=== PATIENT | female | born 1950 | race Caucasian/White ===

== ENCOUNTER 2023-09-19 10:40 | Emergency (ER) | payer MEDICARE, BC, OTHER ==
[~2023-09-19] VITALS: Ht 157.5 cm; Wt 70.0 kg
[2023-09-19 11:27] VITALS: BP 185/98; PULSE 84; RESP 20; TEMP 97.8; O2SAT 98
[2023-09-19] MEDS: ibuprofen tablet 400 MG TABLET PO ONE (12:06)
== END 2023-09-19 13:10 | disposition home or self-care (01) ==
LOC: ER 10:41
DX: S20.224A Contusion of middle back wall of thorax, initial encounter (principal); S70.01XA Contusion of right hip, initial encounter; Z88.5 Allergy status to narcotic agent; W19.XXXA Unspecified fall, initial encounter; Y93.89 Activity, other specified; Y92.89 Other specified places as the place of occurrence of the external cause; Y99.8 Other external cause status
CPT/HCPCS: 72070; 72100; 73502; 99284